=== PATIENT | female | born 1985 | race Caucasian/White ===

== ENCOUNTER 2018-12-28 15:30 | Emergency (ER) | payer BC ==
[~2018-12-28] VITALS: Ht 165.1 cm; Wt 77.1 kg
[~2018-12-28 15:30] MED LIST: [UNRECOGNIZED DRUG - CODE] PO
[2018-12-28] MEDS ORDERED: ondansetron/PF 4mg/2ml inj IV ONE (15:40)
[2018-12-28] MEDS ORDERED: normal saline 1000ML IV soln IVB ONE (15:40)
[2018-12-28 16:36] LABS: BASOPHILS % (AUTO) 0.2 % (0-1); HEMATOCRIT 44.2 % (35.0-45.0); HEMOGLOBIN 14.7 g/dl (12.0-16.0); LYMPHOCYTES # (AUTO) 0.8 X10'3 (1.1-4.8); LYMPHOCYTES % (AUTO) 16.1 % (21-51); MEAN CORPUSCULAR HEMOGLOBIN 32.2 PG (27.0-31.0); MEAN CORPUSCULAR HGB CONC 33.4 g/dL (33.0-36.5); MEAN CORPUSCULAR VOLUME 96.5 FL (78-98); MEAN PLATELET VOLUME 7.6 FL (7.4-10.4); MONOCYTES # (AUTO) 0.3 X10'3 (0-0.9); MONOCYTES % (AUTO) 6.2 % (2-12); NEUTROPHILS # (AUTO) 3.9 X10'3 (1.8-7.7); NEUTROPHILS % (AUTO) 76.5 % (42-75); PLATELET COUNT 249 X10'3 (140-440); RED BLOOD COUNT 4.58 X10'6 (4.20-5.60); RED CELL DISTRIBUTION WIDTH 12.5 % (11.5-14.5); WHITE BLOOD COUNT 5.1 X10'3 (4.5-11.0)
[2018-12-28 17:23] LABS: ALANINE AMINOTRANSFERASE 182 U/L (12-78); ALBUMIN 4.8 G/DL (3.4-5.0); ALBUMIN/GLOBULIN RATIO 1.4 (1.1-1.5); ALKALINE PHOSPHATASE 68 IU/L (46-116); ANION GAP 15 (8-16); ASPARTATE AMINO TRANSFERASE 112 U/L (10-37); BILIRUBIN,TOTAL 1.1 MG/DL (0.1-1.0); BLOOD UREA NITROGEN 10 MG/DL (7-18); BUN/CREATININE RATIO 12.5 (6.6-38.0); CALCIUM 9.9 MG/DL (8.5-10.1); CHLORIDE 97 MMOL/L (99-107); GLUCOSE 97 MG/DL (70-104); LIPASE 539 U/L (73-393); POTASSIUM 3.8 MMOL/L (3.5-5.1); SODIUM 138 MMOL/L (135-145); TOTAL CARBON DIOXIDE 26.4 MMOL/L (24-32); TOTAL PROTEIN 8.2 G/DL (6.4-8.2); eGFR 82 ML/MIN
[2018-12-28 17:48] LABS: ETHANOL < 0.010 GM/DL (0.0-0.010)
[2018-12-28] MEDS ORDERED: morphine 4 MG/ML inj SYRINge IV PRN (18:50)
[2018-12-28 19:57] LABS: CLARITY,URINE SLIGHTLY CLOUDY (Clear); COLOR,URINE YELLOW (Yellow); GLUCOSE, URINE NEGATIVE (Neg); KETONES,URINE >=80 mg/dl (Neg); LEUKOCYTE ESTERASE ,URINE TRACE (Neg); NITRITES, URINE NEGATIVE (Neg); OCCULT BLOOD,URINE NEGATIVE (Neg); PH,URINE 6.5 (4.8-8.0); PROTEIN,URINE NEGATIVE (Neg); UROBILINOGEN,URINE 0.2 E.U/dL (0.2-1.0)
[2018-12-28 20:00] LABS: UA COLLECTION TYPE CLN CATCH MIDSTREAM
[2018-12-28 20:08] LABS: HCG SERUM QL NEGATIVE
[2018-12-28 20:17] VITALS: BP 129/65
[2018-12-28 20:31] LABS: MUCUS STRANDS MODERATE /LPF (Neg); SQUAMOUS EPITHELIAL CELL,UR MANY /LPF (FEW)
[2018-12-28 20:32] LABS: BACTERIA,URINE FEW /HPF (Neg); RBC,URINE 0-2 /HPF (0-2); WBC,URINE 0-4 /HPF (0-4)
[2018-12-28] MEDS ORDERED: NAPR-56 PO (21:00)
[2018-12-28] MEDS ORDERED: HYDR-4383 PO (21:00)
[2018-12-28] MEDS ORDERED: ONDA4TAB6 PO (21:00)
== END 2018-12-28 21:11 | disposition home or self-care (01) ==
LOC: ER 15:30
DX: K85.20 Alcohol induced acute pancreatitis without necrosis or infection (principal); K80.50 Calculus of bile duct without cholangitis or cholecystitis without obstruction; E86.0 Dehydration; J45.909 Unspecified asthma, uncomplicated
CPT/HCPCS: 36415; 74176; 76700; 80053; 80320; 81001; 83690; 84703; 85025; 96361; 96374; 96375; 99284; J2270; J2405; J7030

== ENCOUNTER 2021-01-04 20:53 | Emergency (ER) | payer BC, MEDICAID ==
[~2021-01-04] VITALS: Ht 165.1 cm; Wt 67.5 kg
[~2021-01-04 20:53] MED LIST changes: +HYDR-4383 PO; +ONDA4TAB6 PO
[2021-01-04 21:33] LABS: BASOPHILS % (AUTO) 1.1 % (0-1); EOSINOPHILS # (AUTO) 0.1 X10'3 (0-0.9); EOSINOPHILS % (AUTO) 2.1 % (0-6); HEMATOCRIT 40.6 % (35.0-45.0); LYMPHOCYTES # (AUTO) 1.2 X10'3 (1.1-4.8); MEAN CORPUSCULAR HEMOGLOBIN 34.5 PG (27.0-31.0); MEAN CORPUSCULAR HGB CONC 34.4 g/dL (33.0-36.5); MEAN CORPUSCULAR VOLUME 100.4 FL (78-98); MEAN PLATELET VOLUME 7.8 FL (7.4-10.4); MONOCYTES # (AUTO) 0.5 X10'3 (0-0.9); MONOCYTES % (AUTO) 12.5 % (2-12); NEUTROPHILS # (AUTO) 2.3 X10'3 (1.8-7.7); NEUTROPHILS % (AUTO) 54.3 % (42-75); PLATELET COUNT 279 X10'3 (140-440); RED BLOOD COUNT 4.04 X10'6 (4.20-5.60); RED CELL DISTRIBUTION WIDTH 12.7 % (11.5-14.5); WHITE BLOOD COUNT 4.1 X10'3 (4.5-11.0)
[2021-01-04] MEDS ORDERED: normal saline 1000ml 1,000 ML IV ONE (21:40)
[2021-01-04 21:57] LABS: URINE HCG NEGATIVE (NEG)
[2021-01-04 21:58] LABS: ALANINE AMINOTRANSFERASE 90 U/L (12-78); ALBUMIN 4.5 G/DL (3.4-5.0); ALBUMIN/GLOBULIN RATIO 1.2 (1.1-1.5); ALKALINE PHOSPHATASE 104 IU/L (46-116); ANION GAP 15 (8-16); ASPARTATE AMINO TRANSFERASE 127 U/L (10-37); BILIRUBIN,TOTAL 1.1 MG/DL (0.1-1.0); CALCIUM 9.6 MG/DL (8.5-10.1); CHLORIDE 98 MMOL/L (99-107); GLUCOSE 158 MG/DL (70-104); LIPASE 183 U/L (73-393); POTASSIUM 3.8 MMOL/L (3.5-5.1); SODIUM 138 MMOL/L (135-145); TOTAL CARBON DIOXIDE 24.8 MMOL/L (24-32); TOTAL PROTEIN 8.4 G/DL (6.4-8.2)
[2021-01-04 22:06] LABS: BLOOD UREA NITROGEN 5 MG/DL (7-18); BUN/CREATININE RATIO 5.6 (6.6-38.0); eGFR 71 ML/MIN
[2021-01-04] MEDS ORDERED: ondansetron/PF 4mg/2ml inj IV ONE (22:15)
[2021-01-04] MEDS ORDERED: LIDOcaine Viscous 15ml cup MM ONE (22:15)
[2021-01-04] MEDS ORDERED: pantoprazole 40 MG vial IV ONE (22:15)
[2021-01-04] MEDS ORDERED: mag hydrox/Alum hydrox/simeth 30ml oral suspension PO ONE (22:15)
[2021-01-04 22:25] VITALS: BP 137/98
[2021-01-04 22:54] LABS: COLOR,URINE YELLOW (Yellow); GLUCOSE, URINE 100 mg/dl (Neg); KETONES,URINE TRACE mg/dl (Neg); LEUKOCYTE ESTERASE ,URINE NEGATIVE (Neg); NITRITES, URINE NEGATIVE (Neg); OCCULT BLOOD,URINE TRACE-INTACT (Neg); PH,URINE 5.5 (4.8-8.0); PROTEIN,URINE TRACE mg/dl (Neg)
[2021-01-04] MEDS ORDERED: ONDA4TAB6 PO (22:56)
[2021-01-04] MEDS ORDERED: PANT20TA18 PO (22:56)
[2021-01-04 23:00] LABS: UA COLLECTION TYPE CLN CATCH MIDSTREAM
[2021-01-04 23:01] LABS: CLARITY,URINE SLIGHTLY CLOUDY (Clear); WBC,URINE 0-4 /HPF (0-4)
[2021-01-04 23:02] LABS: BACTERIA,URINE FEW /HPF (Neg); RBC,URINE 0-2 /HPF (0-2); SQUAMOUS EPITHELIAL CELL,UR MODERATE /LPF (FEW)
[2021-01-04 23:11] LABS: ETHANOL < 0.010 GM/DL (0.0-0.010)
== END 2021-01-04 23:21 | disposition home or self-care (01) ==
LOC: ER 20:54
DX: R11.2 Nausea with vomiting, unspecified (principal); R10.13 Epigastric pain; R19.7 Diarrhea, unspecified; J45.909 Unspecified asthma, uncomplicated; Z86.2 Personal history of diseases of the blood and blood-forming organs and certain disorders involving the immune mechanism; Z98.890 Other specified postprocedural states; Z79.899 Other long term (current) drug therapy
CPT/HCPCS: 36415; 76700; 80053; 80320; 81001; 81025; 82948; 83690; 85025; 96361; 96374; 96375; 99284; C9113; J2405; J7030

== ENCOUNTER 2022-01-22 21:35 | Emergency (ER) | payer MEDICAID ==
[~2022-01-22] VITALS: Ht 165.1 cm; Wt 140.0 kg
[~2022-01-22 21:35] MED LIST changes: +PANT20TA18 PO
[2022-01-22] MEDS ORDERED: naproxen 500mg tablet PO ONE (23:05)
[2022-01-22] MEDS ORDERED: bacitracin 15gm ointment TP ONE (23:05)
[2022-01-22] MEDS ORDERED: insulin regular, human 10 units/0.1 ml syringe SQ ONE (23:25)
[2022-01-22] MEDS ORDERED: insulin glargine (Lantus) pen - multi-dose SQ ONE (23:25)
[2022-01-22 23:59] VITALS: BP 124/78
== END 2022-01-23 00:01 | disposition home or self-care (01) ==
LOC: ER 21:37
DX: E11.65 Type 2 diabetes mellitus with hyperglycemia (principal); J45.909 Unspecified asthma, uncomplicated; Z86.2 Personal history of diseases of the blood and blood-forming organs and certain disorders involving the immune mechanism; Z98.890 Other specified postprocedural states; Z79.899 Other long term (current) drug therapy; V89.2XXA Person injured in unspecified motor-vehicle accident, traffic, initial encounter; Y93.89 Activity, other specified; Y92.89 Other specified places as the place of occurrence of the external cause; Y99.8 Other external cause status
CPT/HCPCS: 82948; 96372; 99284; J1815